=== PATIENT | female | born 1985 | race Two or more races ===

== ENCOUNTER 2016-06-03 05:10 | Day surgery (SDC) | payer BC, MEDICAID, OTHER ==
[2016-06-02 12:38] LABS: APPEARANCE,URINE SLIGHTLY-CLOUDY; BILIRUBIN,URINE NEGATIVE (NEGATIVE); GLUCOSE, URINE NEGATIVE (NEGATIVE); KETONES,URINE NEGATIVE (NEGATIVE); LEUKOCYTE ESTERASE,URINE MODERATE (NEGATIVE); NITRITE,URINE NEGATIVE (NEGATIVE); PROTEIN,URINE NEGATIVE (NEGATIVE); URINE SPECIFIC GRAVITY 1.014; UROBILINOGEN,URINE NEGATIVE mg/dL (<2.0)
[2016-06-02 12:44] LABS: HEMATOCRIT 36.9 % (36.0-47.0); HEMOGLOBIN 11.9 g/dL (12.0-15.5); HGB HCT DIFFERENCE -1.2; MEAN CORPUSCULAR HEMOGLOBIN 23.8 pg (27.0-33.4); MEAN CORPUSCULAR HGB CONC 32.4 g/dL (32.0-36.0); MEAN CORPUSCULAR VOLUME 74 fl (80-97); RED BLOOD COUNT 5.01 10^6/uL (3.72-5.28); RED CELL DISTRIBUTION WIDTH 20.1 % (11.5-14.0); WHITE BLOOD COUNT 5.7 10^3/uL (4.0-10.5)
[2016-06-02 12:59] LABS: ALANINE AMINOTRANSFERASE 40 U/L (9-52); ALKALINE PHOSPHATASE 60 U/L (38-126); ANION GAP 10 (5-19); ASPARTATE AMINO TRANSFERASE 34 U/L (14-36); BILIRUBIN,TOTAL 0.4 mg/dL (0.2-1.3); BLOOD UREA NITROGEN 12 mg/dL (7-20); CALCIUM 9.9 mg/dL (8.4-10.2); CARBON DIOXIDE 26 mmol/L (22-30); CHLORIDE 101 mmol/L (98-107); GLUCOSE 79 mg/dL (75-110); POTASSIUM 4.5 mmol/L (3.6-5.0); SODIUM 137.1 mmol/L (137-145); TOTAL PROTEIN 7.6 g/dL (6.3-8.2)
[~2016-06-03 05:10] MED LIST: CEFAZOLIN 2 GM/D5W RTU 2 GM/50 ML RTUPB IV PRN; LACTATED RINGERS 1000 ML IV PRN; LIDOCAINE 0.5% INJ-PF (5 MG/ML) 50 ML SDV SUBCUT PRN
[2016-06-03] MEDS ORDERED: HYDROMORPHONE HCL INJ/PF 2 MG/ML AMPULE ONE (06:45)
[2016-06-03] MEDS ORDERED: FENTANYL CITRATE INJ/PF 250 MCG/5 ML AMPULE ONE (06:45)
[2016-06-03] MEDS ORDERED: MIDAZOLAM 2 MG/2 ML INJ ONE (06:46)
[2016-06-03] MEDS ORDERED: ACETAMINOPHEN 100 ML IV ONE ×2 (06:46→14:00)
[2016-06-03] MEDS ORDERED: PROPOFOL INJ 200 MG/20 ML VIAL IV ONE (06:46)
[2016-06-03] MEDS ORDERED: MEPERIDINE HCL/PF INJ 25 MG/1 ML DISP.SYRIN IV PRN (08:30)
[2016-06-03] MEDS ORDERED: PROMETHAZINE HCL INJ 25 MG/1 ML VIAL IV PRN ×2 (08:30)
[2016-06-03] MEDS ORDERED: FENTANYL CITRATE INJ/PF 100 MCG/2 ML AMPUL IV PRN ×3 (08:30)
[2016-06-03] MEDS ORDERED: DIPHENHYDRAMINE HCL 50 MG/ML VIAL IV PRN (08:30)
[2016-06-03] MEDS ORDERED: MORPHINE SULFATE 10 MG/ML INJ IV PRN (08:30)
--- NOTE | 2016-06-03 10:10 | Operative Report ---
Operative Report DATE OF SURGERY: 06/03/16 PREOPERATIVE DIAGNOSIS: Heavy menses and pelvic pain POSTOPERATIVE DIAGNOSIS: Same plus left dermoid cyst OPERATION: Robotic hysterectomy left salpingo-oophorectomy SURGEON: MAYE BURTON INSIGHTS STRATEGIST: or staff ANESTHESIA: GA TISSUE REMOVED OR ALTERED: Uterus left tube and ovary COMPLICATIONS: None ESTIMATED BLOOD LOSS: 50 mL INTRAOPERATIVE FINDINGS: 4 cm left ovarian cyst PROCEDURE: Patient was taken to the OR and Placed in supine position. Gen. anesthesia was induced. She was placed in dorsal lithotomy position using Yazan stirrups. Her abdomen and pelvis perineum were prepared and draped in a sterile fashion. Her bladder was drained with Dias catheter. The V care uterine manipulator was placed on the cervix. An incision was made 5 mm above the umbilicus. The fascia was grasped with Allis clamps and elevated. The fascia was incised entering the abdominal cavity without incident. A blunt port was placed in the balloon inflated. Laparoscopy confirmed appropriate placement. The abdomen was insufflated with CO2 gas. The lateral ports were then placed under laparoscopic visualization and right lower quadrant port placed under laparoscopic visualization. At the console the view of the pelvis was good. The ureters were identified bilaterally. The left infundibulopelvic pedicle was cauterized with bipolar and cut with monopolar cautery. Then staying directly next to the uterus the round ligaments were cauterized with bipolar and cut with monopolar bilaterally. The right utero-ovarian pedicle was cauterized with bipolar and cut with monopolar cautery. The broad ligaments were cauterized with bipolar and cut with monopolar cautery bilaterally staying next to the uterine body. The anterior leaf the broad ligament was incised cranial bladder flap. The uterine arteries were cauterized by laterally with bipolar cautery and cut with monopolar cautery staying next to the cervix. Cardinal ligaments likewise were cauterized with bipolar and cut with monopolar cautery staying next to the uterine cervix. The vaginal cuff was incised and excised in a circumferential manner staying inside the V care cup. Uterus left tube and ovary were removed through the vagina. Next the monopolar Shear and the bipolar grasper were removed and replaced with a needle boat driver on the right and a grasper on the left. A size 0 V lock suture was placed through the right lower quadrant port. The vaginal cuff was closed from right to left incorporating anterior vaginal post a lateral vaginal sidewall and posterior vaginal mucosa with the first bite. The cuff was then closed in a running fashion incorporating anterior vaginal cuff was sutured to the posterior vaginal mucosa. Upon reaching the left side of the cuff anterior vaginal cuff was allowed left vaginal sidewall and posterior vaginal mucosa were grasped closing the cuff completely. Several sutures were then placed medially in a running fashion and the V lock suture was cut. Pelvis was irrigated and suctioned free of fluid. Hemostasis was good. Both ureters could be seen peristalsing in the abdomen. There was no evidence of injury to the bladder. The robot was undocked from the patient. Under laparoscopic visualization the right lower quadrant port was removed as well as the 2 lateral ports. The umbilical port and scope were removed at the same time. The fascia at the umbilical site was closed with a 2-0 Vicryl stitch in a running fashion. The skin was closed in all 4 sites with 4-0 undyed Vicryl suture. The patient was placed back in supine position and extubated the in the OR and taken recovery room in stable condition
[2016-06-03] MEDS: FENTANYL CITRATE INJ/PF 100 MCG/2 ML AMPUL ONE ×2 (10:25→10:33)
[2016-06-03] MEDS ORDERED: ONDANSETRON 4 MG TAB.RAPDIS PO PRN (10:33)
[2016-06-03] MEDS ORDERED: HYDROMORPHONE HCL INJ/PF 2 MG/ML AMPULE IV PRN (10:34)
[2016-06-03] MEDS: HYDROMORPHONE HCL INJ/PF 2 MG/ML AMPULE IV PRN ×2 (11:32→18:09)
[2016-06-03] MEDS: RINGERS SOLUTION,LACTATED 1,000 ML IV PRN ×2 (11:38→19:55)
[2016-06-03] MEDS ORDERED: ONDANSETRON HCL INJ/PF 4 MG/2 ML SDV ONE (14:32)
[2016-06-03] MEDS ORDERED: NEOSTIGMINE METHYLSULFATE 10 MG/10 ML VIAL ONE (14:32)
[2016-06-03] MEDS ORDERED: LIDOCAINE 2% INJ-PF (20 MG/ML) 10 ML AMPUL ONE (14:32)
[2016-06-03] MEDS ORDERED: VECURONIUM BROMIDE INJ 10 MG VIAL IV ONE (14:32)
[2016-06-03] MEDS ORDERED: SUCCINYLCHOLINE CHLORIDE INJ 200 MG/10 ML VIAL ONE (14:32)
[2016-06-03] MEDS ORDERED: DEXAMETHASONE SOD PHOSPHATE INJ 4 MG/1 ML VIAL ONE (14:32)
[2016-06-03] MEDS ORDERED: GLYCOPYRROLATE INJ 0.4 MG/2 ML VIAL ONE (14:32)
[2016-06-03 15:24] LABS: HEMATOCRIT 33.4 % (36.0-47.0); HEMOGLOBIN 10.9 g/dL (12.0-15.5); HGB HCT DIFFERENCE -0.7; MEAN CORPUSCULAR HGB CONC 32.8 g/dL (32.0-36.0); MEAN CORPUSCULAR VOLUME 73 fl (80-97); RED BLOOD COUNT 4.55 10^6/uL (3.72-5.28); RED CELL DISTRIBUTION WIDTH 19.8 % (11.5-14.0); WHITE BLOOD COUNT 9.4 10^3/uL (4.0-10.5)
[2016-06-03 15:42] LABS: ANION GAP 11 (5-19); BLOOD UREA NITROGEN 8 mg/dL (7-20); CALCIUM 9.4 mg/dL (8.4-10.2); CARBON DIOXIDE 24 mmol/L (22-30); CHLORIDE 101 mmol/L (98-107); CREATININE RESULT 0.64 mg/dL (0.52-1.25); GLUCOSE 120 mg/dL (75-110); POTASSIUM 4.5 mmol/L (3.6-5.0); SODIUM 136.2 mmol/L (137-145)
[2016-06-03] MEDS: IBUPROFEN 800 MG TABLET PO SCH (18:02)
[2016-06-03] MEDS ORDERED: OXYCODONE-ACETAMINOPHEN 5-325 MG TABLET PO PRN (20:38)
[2016-06-03] MEDS: OXYCODONE-ACETAMINOPHEN 5-325 MG TABLET PO PRN (20:48)
[2016-06-04] MEDS: OXYCODONE-ACETAMINOPHEN 5-325 MG TABLET PO PRN ×3 (00:50→13:59)
[2016-06-04 07:22] LABS: HEMOGLOBIN 10.4 g/dL (12.0-15.5); HGB HCT DIFFERENCE -0.8; MEAN CORPUSCULAR HEMOGLOBIN 23.8 pg (27.0-33.4); MEAN CORPUSCULAR HGB CONC 32.4 g/dL (32.0-36.0); MEAN CORPUSCULAR VOLUME 74 fl (80-97); RED BLOOD COUNT 4.35 10^6/uL (3.72-5.28); RED CELL DISTRIBUTION WIDTH 19.2 % (11.5-14.0); WHITE BLOOD COUNT 7.2 10^3/uL (4.0-10.5)
[2016-06-04 07:32] LABS: ANION GAP 8 (5-19); BLOOD UREA NITROGEN 8 mg/dL (7-20); CALCIUM 9.2 mg/dL (8.4-10.2); CARBON DIOXIDE 26 mmol/L (22-30); CHLORIDE 103 mmol/L (98-107); CREATININE RESULT 0.66 mg/dL (0.52-1.25); GLUCOSE 87 mg/dL (75-110); POTASSIUM 3.9 mmol/L (3.6-5.0); SODIUM 137.1 mmol/L (137-145)
--- NOTE | 2016-06-04 08:05 | PDOC PROGRESS REPORT ---
Subjective Progress Note for:: 06/04/16 Subjective:: She is doing well. Voiding normally. Up walking. Physical Exam - Physical Exam Vital Signs: Temp Pulse Resp BP Pulse Ox 98.3 F 74 20 122/61 98 06/04/16 04:00 06/04/16 04:00 06/04/16 04:00 06/04/16 04:00 06/04/16 04:00 Intake & Output 06/03/16 06/04/16 06/05/16 06:59 06:59 06:59 Intake Total 0 3200 Output Total 4000 Balance 0 -800 Weight 81.19 kg General appearance: PRESENT: no acute distress, well-developed, well-nourished Head exam: PRESENT: atraumatic, normocephalic GI/Abdominal exam: PRESENT: normal bowel sounds, soft. ABSENT: distended, guarding, mass, organolmegaly, rebound, tenderness Result Laboratory Results: 06/04/16 07:02 06/04/16 07:02 06/03/16 06/03/16 06/04/16 15:17 15:17 07:02 WBC 9.4 7.2 RBC 4.55 4.35 Hgb 10.9 L 10.4 L Hct 33.4 L 32.0 L MCV 73 L 74 L MCH 24.0 L 23.8 L MCHC 32.8 32.4 RDW 19.8 H 19.2 H Plt Count 234 212 Sodium 136.2 L Potassium 4.5 Chloride 101 Carbon Dioxide 24 Anion Gap 11 BUN 8 Creatinine 0.64 Est GFR ( Amer) > 60 Est GFR (Non-Af Amer) > 60 Glucose 120 H Calcium 9.4 06/04/16 07:02 WBC RBC Hgb Hct MCV MCH MCHC RDW Plt Count Sodium 137.1 Potassium 3.9 Chloride 103 Carbon Dioxide 26 Anion Gap 8 BUN 8 Creatinine 0.66 Est GFR ( Amer) > 60 Est GFR (Non-Af Amer) > 60 Glucose 87 Calcium 9.2 Assessment & Plan - Diagnosis (1) Menorrhagia Qualifiers: Menorrahagia type: with irregular cycle Qualified Code(s): N92.1 - Excessive and frequent menstruation with irregular cycle Is this a current diagnosis for this admission?: YesPlan: She underwent hysterectomy and removal of Left dermoid. Home later today for recovery. Follow up in two weeks. - Time Time Spent with patient: 15-24 minutes
--- NOTE | 2016-06-04 08:28 | DISCHARGE SUMMARY E ---
Discharge Summary NAME: JAVIER TRIANA : 1985 AGE: 30Y ADMITTED: 06/03/2016 DISCHARGED: DIAGNOSES: 1. Menorrhagia. 2. Left dermoid cyst. PROCEDURE: Robotic hysterectomy with removal of the left adnexa. The patient was admitted on June 03 for robotic hysterectomy. The case went well. Please see the operative report. The night of surgery we were working on pain control and she received IV narcotics, and was eventually switched to oral Percocet. She also received IV Tylenol and IV Toradol. Her pain was in good control by evening. Her labs were stable. Her Dias catheter was removed and she was able to void on her own. She did well overnight and this morning, continues to do well, and feels ready to go home to rest. Her hemoglobin and hematocrit are stable. Her vitals are normal. She will go home today with rest at home. Regular diet. Pelvic rest. She is off work for at least 2 weeks and will follow up in the office in 2 weeks to determine if she can go back to light duty. Condition on discharge is good. DICTATING PHYSICIAN: MAYE PERSON M.D. [id number] PHY#: [id number] ID: [id number] JOB#: [id number] ACCT: [id number] cc:MAYE PERSON M.D. >
[2016-06-04] MEDS: LEVOTHYROXINE SODIUM 0.088 MG TABLET PO SCH (09:39)
[2016-06-04] MEDS: IBUPROFEN 800 MG TABLET PO SCH ×2 (09:41→19:57)
[2016-06-04] MEDS: HYDROMORPHONE HCL INJ/PF 2 MG/ML AMPULE IV PRN ×2 (16:41→22:16)
[2016-06-05] MEDS: OXYCODONE-ACETAMINOPHEN 5-325 MG TABLET PO PRN ×3 (02:03→12:08)
[2016-06-05 08:30] VITALS: BP 110/74
[2016-06-05] MEDS: IBUPROFEN 800 MG TABLET PO SCH (12:07)
[2016-06-05] MEDS: LEVOTHYROXINE SODIUM 0.088 MG TABLET PO SCH (12:09)
== END 2016-06-05 13:20 | disposition home or self-care (01) ==
LOC: OROUT 05:10 → 2N 11:12 → OROUT 06-05 13:20
PROVIDERS: ATTEND Obstetrics & Gynecology
PROC: 0UTC4ZZ Resection of Cervix, Percutaneous Endoscopic Approach (ICD-10-PCS; 2016-06-03)
PROC: 0UT14ZZ Resection of Left Ovary, Percutaneous Endoscopic Approach (ICD-10-PCS; 2016-06-03)
PROC: 0UT64ZZ Resection of Left Fallopian Tube, Percutaneous Endoscopic Approach (ICD-10-PCS; 2016-06-03)
PROC: 8E0W4CZ Robotic Assisted Procedure of Trunk Region, Percutaneous Endoscopic Approach (ICD-10-PCS; 2016-06-03)
PROC: 0UT94ZZ Resection of Uterus, Percutaneous Endoscopic Approach (ICD-10-PCS; principal; 2016-06-03 07:30)
DX: N92.0 Excessive and frequent menstruation with regular cycle (principal); N72 Inflammatory disease of cervix uteri; D27.1 Benign neoplasm of left ovary; N87.0 Mild cervical dysplasia; F17.210 Nicotine dependence, cigarettes, uncomplicated; Z79.899 Other long term (current) drug therapy; E07.9 Disorder of thyroid, unspecified; Z88.0 Allergy status to penicillin
CPT/HCPCS: 58571; S2900; 36415; 80048; 80053; 81001; 81025; 840; 85027; 86850; 86900; 86901; 88307; J0131; J0330; J0690; J1100; J1170; J2250; J2405; J2704; J3010; J3490; J7120

== ENCOUNTER 2016-07-05 21:16 | Emergency (ER) | payer OTHER ==
[2016-07-05] MEDS ORDERED: ONDANSETRON 4 MG TAB.RAPDIS PO ONE (21:32)
--- NOTE | 2016-07-05 21:34 | ER Document Report ---
ED Medical Screen (RME) - General Stated Complaint: ABDOMINAL PAIN Mode of Arrival: Ambulatory Information source: Patient Notes: Patient presents to the emergency department with abdominal pain reports history of recent hysterectomy last month. Also reports history of pancreatitis. Epigastric area tender to tender to palpation. Reports some pain with void. I have greeted and performed a rapid initial assessment of this patient. A comprehensive ED assessment and evaluation of the patient, analysis of test results and completion of the medical decision making process will be conducted by additional ED providers. TRAVEL OUTSIDE OF THE [place] IN LAST 30 DAYS: No - Related Data Allergies/Adverse Reactions: Penicillins Adverse Reaction (Severe, Verified 06/02/16 10:57) ? as child Past Medical History - Past Medical History Cardiac Medical History: Denies: Hx Coronary Artery Disease, Hx Heart Attack, Hx Hypertension Pulmonary Medical History: Denies: Hx Asthma, Hx Bronchitis, Hx COPD, Hx Pneumonia Neurological Medical History: Denies: Hx Cerebrovascular Accident, Hx Seizures Musculoskeltal Medical History: Denies Hx Arthritis - Immunizations Hx Diphtheria, Pertussis, Tetanus Vaccination: Yes Physical Exam - Vital signs Vitals: Temp Pulse Resp BP Pulse Ox 97.9 F 94 18 101/60 98 07/05/16 21:29 07/05/16 21:29 07/05/16 21:29 07/05/16 21:29 07/05/16 21:29 Course - Vital Signs Vital signs: Temp Pulse Resp BP Pulse Ox 97.9 F 94 18 101/60 98 07/05/16 21:29 07/05/16 21:29 07/05/16 21:29 07/05/16 21:29 07/05/16 21:29
[2016-07-05 22:15] LABS: ABSOLUTE EOSINOPHILS # (AUTO) 0.2 10^3/uL (0.0-0.6); ABSOLUTE LYMPHOCYTES (AUTO) 0.6 10^3/uL (0.5-4.7); ABSOLUTE MONOCYTES (AUTO) 0.7 10^3/uL (0.1-1.4); ABSOLUTE NEUT (AUTO) 7.6 10^3/uL (1.7-8.2); BASOPHILS % (AUTO) 0.2 % (0-2); HEMATOCRIT 41.2 % (36.0-47.0); HEMOGLOBIN 13.6 g/dL (12.0-15.5); HGB HCT DIFFERENCE -0.4; LYMPHOCYTES % (AUTO) 6.6 % (13-45); MEAN CORPUSCULAR HEMOGLOBIN 25.3 pg (27.0-33.4); MEAN CORPUSCULAR HGB CONC 33.1 g/dL (32.0-36.0); MEAN CORPUSCULAR VOLUME 77 fl (80-97); MONOCYTES % (AUTO) 7.2 % (3-13); RED BLOOD COUNT 5.38 10^6/uL (3.72-5.28); RED CELL DISTRIBUTION WIDTH 17.9 % (11.5-14.0); WHITE BLOOD COUNT 9.1 10^3/uL (4.0-10.5)
[2016-07-05 22:18] LABS: APPEARANCE,URINE SLIGHTLY-CLOUDY; BILIRUBIN,URINE NEGATIVE (NEGATIVE); GLUCOSE, URINE NEGATIVE (NEGATIVE); KETONES,URINE NEGATIVE (NEGATIVE); LEUKOCYTE ESTERASE,URINE NEGATIVE (NEGATIVE); NITRITE,URINE NEGATIVE (NEGATIVE); PROTEIN,URINE 30 mg/dL (NEGATIVE); URINE SPECIFIC GRAVITY 1.016; UROBILINOGEN,URINE NEGATIVE mg/dL (<2.0)
[2016-07-05 22:34] LABS: ALANINE AMINOTRANSFERASE 32 U/L (9-52); ALBUMIN 4.6 g/dL (3.5-5.0); ALKALINE PHOSPHATASE 74 U/L (38-126); ANION GAP 12 (5-19); ASPARTATE AMINO TRANSFERASE 22 U/L (14-36); BILIRUBIN,DIRECT 0.1 mg/dL (0.0-0.4); BILIRUBIN,TOTAL 0.6 mg/dL (0.2-1.3); BLOOD UREA NITROGEN 14 mg/dL (7-20); CALCIUM 9.8 mg/dL (8.4-10.2); CARBON DIOXIDE 27 mmol/L (22-30); CHLORIDE 103 mmol/L (98-107); CREATININE RESULT 0.74 mg/dL (0.52-1.25); GLUCOSE 90 mg/dL (75-110); LIPASE 99.7 U/L (23-300); POTASSIUM 4.4 mmol/L (3.6-5.0); SODIUM 141.8 mmol/L (137-145); TOTAL PROTEIN 7.9 g/dL (6.3-8.2)
[2016-07-06] MEDS ORDERED: ONDANSETRON 4 MG TAB.RAPDIS ONE (02:43)
[2016-07-06] MEDS ORDERED: MAG HYDROX/AL HYDROX/SIMETH SUSP 30 ML UDCUP PO ONE (03:55)
[2016-07-06] MEDS ORDERED: LIDOCAINE 2% VISCOUS SOLN 20 ML UDCUP PO ONE (03:55)
[2016-07-06] MEDS ORDERED: METOCLOPRAMIDE HCL ORAL SOLN 10 MG/10 ML UDCUP PO ONE (03:55)
--- NOTE | 2016-07-06 06:20 | ER Document Report ---
ED GI/ - General Chief Complaint: Abdominal Pain Stated Complaint: ABDOMINAL PAIN Mode of Arrival: Ambulatory Information source: Patient Notes: 31-year-old female presents to the emergency department complaining of upper abdominal pain. Patient reports gradual onset of sharp/burning mid upper abdomen/epigastric pain this evening shortly after eating supper. Reports initially thought pain was gas but when it did not resolve she became concerned. Reports associated nausea and one episode of vomiting. Reports pain is nonradiating. Reports associated chills with unmeasured temperature at home. States had a hysterectomy approximately one month ago however pain is not to mid or lower abdomen and associated vaginal bleeding post surgery has significantly improved without any acute changes. States had dysuria last week but that has also resolved. Denies chest pain or shortness of breath, blood in emesis or stool, diaphoresis, or dizziness. TRAVEL OUTSIDE OF THE [place] 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 as child Past Medical History - General Information source: Patient - Social History Smoking Status: Never Smoker Frequency of alcohol use: None Drug Abuse: None Lives with: Family Family History: Reviewed & Not Pertinent Patient has suicidal ideation: No Patient has homicidal ideation: No - Medical History Medical History: Negative - Past Medical History Cardiac Medical History: Denies: Hx Coronary Artery Disease, Hx Heart Attack, Hx Hypertension Pulmonary Medical History: Denies: Hx Asthma, Hx Bronchitis, Hx COPD, Hx Pneumonia Neurological Medical History: Denies: Hx Cerebrovascular Accident, Hx Seizures Renal/ Medical History: Denies: Hx Peritoneal Dialysis Musculoskeltal Medical History: Denies Hx Arthritis Past Surgical History: Reports: Hx Hysterectomy - Immunizations Hx Diphtheria, Pertussis, Tetanus Vaccination: Yes Review of Systems - Review of Systems Constitutional: No symptoms reported EENT: No symptoms reported Cardiovascular: No symptoms reported Respiratory: No symptoms reported Gastrointestinal: See HPI Genitourinary: No symptoms reported Female Genitourinary: No symptoms reported Musculoskeletal: No symptoms reported Skin: No symptoms reported Hematologic/Lymphatic: No symptoms reported Neurological/Psychological: No symptoms reported -: Yes All other systems reviewed and negative Physical Exam - Vital signs Vitals: Temp Pulse Resp BP Pulse Ox 97.9 F 94 18 101/60 98 07/05/16 21:29 07/05/16 21:29 07/05/16 21:29 07/05/16 21:29 07/05/16 21:29 - General General appearance: Appears well, Alert In distress: None - HEENT Head: Normocephalic, Atraumatic Eyes: Normal Pupils: PERRL - Respiratory Respiratory status: No respiratory distress Chest status: Nontender Breath sounds: Normal Chest palpation: Normal - Cardiovascular Rhythm: Regular Heart sounds: Normal auscultation Murmur: No Pulses: Normal: Radial Normal capillary refill: Yes - Abdominal Inspection: Normal Distension: No distension Bowel sounds: Normal Tenderness: Tender - Mild tenderness to palpation to mid upper abdomen/ epigastric area.. No: Nontender, McBurney's point, Sharif's sign, Guarding, Rebound, Other Organomegaly: No organomegaly - Back Back: Normal, Nontender - Extremities General upper extremity: Normal inspection, Nontender, Normal color, Normal ROM , Normal strength, Normal temperature. No: Tender, Edema General lower extremity: Normal inspection, Nontender, Normal color, Normal ROM , Normal strength, Normal temperature, Normal weight bearing. No: Tender, Edema , Vanessa's sign - Neurological Neuro grossly intact: Yes Cognition: Normal Orientation: AAOx4 Nichol Coma Scale Eye Opening: Spontaneous Nichol Coma Scale Verbal: Oriented Nichol Coma Scale Motor: Obeys Commands Lund Coma Scale Total: 15 Speech: Normal Motor strength normal: LUE, RUE, LLE, RLE Sensory: Normal - Skin Skin Temperature: Warm Skin Moisture: Dry Skin Color: Normal Course - Re-evaluation Re-evalutation: 07/06/16 06:35 Patient hemodynamically stable, in no distress, afebrile, nontoxic, and appears well-hydrated. Labs unremarkable and ultrasound shows fatty infiltration of the liver with no other significant findings. Patient states pain completely resolved after GI cocktail. Patient presents with upper abdominal pain without signs of peritonitis or other life-threatening or serious etiology. The patient appears stable for discharge and has been instructed to return immediately if the symptoms worsen in any way. Patient agrees with home care, follow-up with PCP and GI, and ED return precautions. - Vital Signs Vital signs: Temp Pulse Resp BP Pulse Ox 98 F 84 18 111/68 98 07/06/16 06:46 07/06/16 06:46 07/06/16 06:46 07/06/16 06:46 07/06/16 06:46 - Laboratory Result Diagrams: 07/05/16 22:07 07/05/16 22:07 Laboratory results interpreted by me: 07/05/16 07/05/16 22:07 22:07 RBC 5.38 H MCV 77 L MCH 25.3 L RDW 17.9 H Seg Neutrophils % 84.0 H Lymphocytes % 6.6 L Urine Protein 30 H Urine Blood SMALL H - Diagnostic Test Radiology reviewed: Image reviewed, Reports reviewed Discharge - Discharge Clinical Impression: Upper abdominal pain Condition: Stable Disposition: HOME, SELF-CARE Instructions: Abdominal Pain ([facility]), Acid-Suppressing Medication ([facility]), Antacid Therapy ([facility]), Evaluation of Upper Abdominal Pain ([facility]), Sucralfate ([facility]) Additional Instructions: Drink plenty of fluids. Limit your intake of processed, fatty, salty, spicy foods as well as caffeine and alcohol. Follow-up with your primary care provider in the next 1 to 2 days. Return to the emergency department for any worsening symptoms or concerns. Prescriptions: Ranitidine HCl [Zantac 150 mg Tablet] 150 mg PO BID #30 tablet Sucralfate [Carafate 1 gm Tablet] 1 gm PO ACHS #30 tablet Forms: Return to Work Referrals: JULIET ARREDONDO MD [Primary Care Provider] - Follow up tomorrow VERNA LUZ MD [ACTIVE STAFF] - Follow up in 3-5 days
[2016-07-06 06:59] VITALS: BP 111/68
== END 2016-07-06 06:46 | disposition home or self-care (01) ==
LOC: ER 21:16
DX: R10.13 Epigastric pain (principal); R11.2 Nausea with vomiting, unspecified; R68.83 Chills (without fever); K76.0 Fatty (change of) liver, not elsewhere classified; Z90.710 Acquired absence of both cervix and uterus
CPT/HCPCS: 99284; 36415; 83690; 85025; 80053; 81001; 76705; S0119; J3490